=== PATIENT | male | born 1985 | race Caucasian/White ===

== ENCOUNTER 2017-05-11 10:41 | Emergency (ER) | payer OTHER ==
[~2017-05-11] VITALS: Ht 180.3 cm; Wt 95.0 kg
[2017-05-11 10:48] VITALS: BP 126/66; PULSE 102; RESP 18; TEMP 98.6; O2SAT 95
[2017-05-11 10:52] VITALS: BP 122/62; PULSE 109; RESP 18; TEMP 98.6; O2SAT 97
[2017-05-11] MEDS ORDERED: LIDOCAINE HCL 1% PF 30 ML VIAL ONE (11:13)
[2017-05-11] MEDS ORDERED: LIDOCAINE HCL 1% 30 ML VIAL INFIL ONE (11:15)
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
== END 2017-05-11 12:40 | disposition home or self-care (01) ==
LOC: NEPE 10:41
DX: S01.512A Laceration without foreign body of oral cavity, initial encounter (principal); S00.81XA Abrasion of other part of head, initial encounter; V86.56XA Driver of dirt bike or motor/cross bike injured in nontraffic accident, initial encounter
CPT/HCPCS: 12013; 70486